=== PATIENT | male | born 1950 | race Two or more races ===

== ENCOUNTER → 2019-06-29 | Day surgery (SDC) | payer OTHER | END | disposition home or self-care (01) | LOC: ADM 06-22 13:45 → AMB-ENDOS 08:45 | DX: D12.2 Benign neoplasm of ascending colon (principal); K64.1 Second degree hemorrhoids ==

== ENCOUNTER 2024-08-15 09:00 | Day surgery (SDC) | payer OTHER ==
[2024-08-09 12:51] VITALS: BP 140/83
[~2024-08-15] VITALS: Ht 157.5 cm; Wt 68.0 kg
[~2024-08-15 09:00] MED LIST: TAMS0.4C PO; VASOTEC10 MG PO; ZOCOR20 MG PO
[2024-08-15] MEDS ORDERED: HEMOSTATIC MATRIX 1 KIT KIT TOP ONE (09:57)
[2024-08-15] MEDS ORDERED: LIDOCAINE HCL 1%/EPINEPHRINE 20ML VIAL IJ ONE (09:58)
[2024-08-15] MEDS ORDERED: BUPIVACAINE HCL/MPF 0.5% 30ML VIAL ONE (09:58)
[2024-08-15] MEDS ORDERED: POVIDONE-IODINE 118 ML BOTT TOP ONE (09:58)
[2024-08-15] MEDS ORDERED: DIBUCAINE 30 GM TUBE ONE (09:58)
[2024-08-15] MEDS ORDERED: METRONIDAZOLE/SODIUM CHLORIDE 500 MG/100 ML PIGGYBACK IV ONE (09:59)
[2024-08-15] MEDS ORDERED: levoFLOXacin IN DEXTROSE 5 % 5 MG/ML PIGGYBAG IV ONE (11:00)
== END 2024-08-15 15:20 | disposition home or self-care (01) ==
LOC: CIR.AMB 09:00
PROVIDERS: ATTEND Colon & Rectal Surgery
DX: K60.321 Anal fistula, complex, initial (principal); K60.50 Anorectal fistula, unspecified; I10 Essential (primary) hypertension; Z88.0 Allergy status to penicillin

== ENCOUNTER 2025-01-09 06:00 | Day surgery (SDC) | payer OTHER ==
[2025-01-02 12:59] VITALS: BP 145/81
[2025-01-02 15:57] LABS: INR 1.01
[~2025-01-09] VITALS: Ht 157.5 cm; Wt 68.0 kg
[2025-01-09] MEDS ORDERED: METRONIDAZOLE/SODIUM CHLORIDE 500 MG/100 ML PIGGYBACK IV ONE (08:53)
[2025-01-09] MEDS ORDERED: BUPIVACAINE HCL/MPF 0.5% 30ML VIAL ONE (09:50)
[2025-01-09] MEDS ORDERED: POVIDONE-IODINE 118 ML BOTT TOP ONE (09:51)
[2025-01-09] MEDS ORDERED: HEMOSTATIC MATRIX 1 KIT KIT TOP ONE (09:51)
[2025-01-09] MEDS ORDERED: DIBUCAINE 30 GM TUBE ONE (09:51)
[2025-01-09] MEDS ORDERED: LIDOCAINE HCL 1%/EPINEPHRINE 20ML VIAL IJ ONE (09:51)
[2025-01-09] MEDS ORDERED: levoFLOXacin IN DEXTROSE 5 % 5 MG/ML PIGGYBAG IV ONE (10:45)
== END 2025-01-09 15:50 | disposition home or self-care (01) ==
LOC: CIR.AMB 06:00
PROVIDERS: ATTEND Colon & Rectal Surgery
DX: K60.321 Anal fistula, complex, initial (principal); Z88.0 Allergy status to penicillin